=== PATIENT | female | born 1980 | race African-American/Black ===

== ENCOUNTER 2018-10-30 12:36 | Emergency (ER) | payer OTHER ==
[2018-10-30 13:29] LABS: ABSOLUTE LYMPHOCYTES (AUTO) 2.3 10^3/uL (0.5-4.7); ABSOLUTE MONOCYTES (AUTO) 0.3 10^3/uL (0.1-1.4); ABSOLUTE NEUT (AUTO) 2.1 10^3/uL (1.7-8.2); EOSINOPHILS % (AUTO) 0.2 % (0-6); HEMATOCRIT 37.4 % (36.0-47.0); HEMOGLOBIN 12.4 g/dL (12.0-15.5); LYMPHOCYTES % (AUTO) 48.4 % (13-45); MEAN CORPUSCULAR HEMOGLOBIN 30.2 pg (27.0-33.4); MEAN CORPUSCULAR HGB CONC 33.3 g/dL (32.0-36.0); MEAN CORPUSCULAR VOLUME 91 fl (80-97); MONOCYTES % (AUTO) 6.8 % (3-13); PLATELET COUNT 347 10^3/uL (150-450); RED BLOOD COUNT 4.11 10^6/uL (3.72-5.28); RED CELL DISTRIBUTION WIDTH 14.2 % (11.5-14.0); SEGMENTED NEUTROPHILS % (AUTO) 43.6 % (42-78); TOTAL CELLS COUNTED % (AUTO) 100 %; WHITE BLOOD COUNT 4.7 10^3/uL (4.0-10.5)
[2018-10-30 13:42] LABS: ALANINE AMINOTRANSFERASE 22 U/L (9-52); ALBUMIN 4.2 g/dL (3.5-5.0); ALKALINE PHOSPHATASE 74 U/L (38-126); ANION GAP 9 (5-19); ASPARTATE AMINO TRANSFERASE 16 U/L (14-36); BILIRUBIN,DIRECT 0.2 mg/dL (0.0-0.4); BILIRUBIN,TOTAL 0.6 mg/dL (0.2-1.3); BLOOD UREA NITROGEN 14 mg/dL (7-20); CALCIUM 10.1 mg/dL (8.4-10.2); CARBON DIOXIDE 28 mmol/L (22-30); CHLORIDE 102 mmol/L (98-107); GLUCOSE 88 mg/dL (75-110); POTASSIUM 3.9 mmol/L (3.6-5.0); SODIUM 138.7 mmol/L (137-145); TOTAL PROTEIN 8.1 g/dL (6.3-8.2)
--- NOTE | 2018-10-30 13:55 | ER Document Report ---
ED Blood Pressure Problem - General Chief Complaint: High Blood Pressure Stated Complaint: BLOOD PRESSURE ISSUES Time Seen by Provider: 10/30/18 13:01 Primary Care Provider: CAMILO PINEDO MD [Primary Care Provider] - Follow up as needed Mode of Arrival: Ambulatory Information source: Patient TRAVEL OUTSIDE OF THE [place] IN LAST 30 DAYS: No - HPI Patient complains to provider of: High blood pressure Notes: Patient is here with complaints of elevated blood pressure. The patient has a history of hypertension, she is on hydrochlorothiazide as well as amlodipine. She does admit that she does not take her blood pressure medication every day. She states that she did take it yesterday. States that she has been having some intermittent dizziness, headaches for the last few days. She states that she has a mild headache at this time. She denies any head injuries or falls. She is on blood thinning medications. She denies fever. No neck stiffness. No rash. No blurred or loss vision. No unilateral numbness, tingling, weakness. She does report that she has been having some exertional dyspnea for the last several weeks and this morning she was having some chest tightness. No chest pain currently. She denies any nausea, vomiting, diarrhea. She states that she took her blood pressure this morning because she had a headache and noted that it was 235/135. She took her amlodipine and her hydrochlorothiazide. Her blood pressure is improved now. No other specific complaints at this time. - Related Data Allergies/Adverse Reactions: Penicillins Allergy (Verified 10/30/18 12:37) Past Medical History - Social History Smoking Status: Never Smoker Frequency of alcohol use: None Drug Abuse: None Family History: Reviewed & Not Pertinent Patient has suicidal ideation: No Patient has homicidal ideation: No - Past Medical History Cardiac Medical History: Reports: Hx Hypertension Renal/ Medical History: Denies: Hx Peritoneal Dialysis Past Surgical History: Reports: Hx Breast Surgery - L biopsy, Hx Section - x2 Review of Systems - Review of Systems -: Yes All other systems reviewed and negative Physical Exam - Vital signs Vitals: Temp Pulse Resp BP Pulse Ox 97.9 F 87 16 145/88 H 100 10/30/18 12:48 10/30/18 12:48 10/30/18 12:48 10/30/18 12:48 10/30/18 12:48 - Notes Notes: GENERAL: alert, cooperative, nontoxic, no distress. HEAD: normocephalic, atraumatic EYES: conjunctiva pink without discharge, no external redness or swelling. Pupils are equal, round, reactive to light. EARS: no external swelling, no external redness NOSE: atraumatic, no external swelling MOUTH/THROAT: mucous membranes moist and pink, posterior pharynx without erythe ma, swelling, exudate. No trismus or drooling. NECK: soft, supple, full range of motion, no meningismus. CHEST: no distress, lungs clear and equal throughout. No wheezing, rales, rhonchi. CARDIAC: regular rate and rhythm, no murmur, normal capillary refill, normal pulses. No peripheral edema noted. BACK: full range of motion, no CVA tenderness. EXTREMITIES: full range of motion of all extremities. No redness, no swelling. NEURO: alert and oriented x 3, cranial nerves II through XII are grossly intact. Upper and lower extremities are equal throughout. Normal sensation. No focal deficits, full range of motion of all extremities. normal finger to nose. NIH stroke score of 0. PYSCH: appropriate mood, affect. Patient is cooperative. SKIN: pink, warm, dry, no rash. Course - Re-evaluation Re-evalutation: 10/30/18 18:01 Patient is nontoxic-appearing with stable vitals. The patient is here with complaints of dizziness which she is describes more of an ataxia when she gets up for the last several days. States that she is noticed that her blood pressure has been elevated, it was 205/131 home. She took her blood pressure medication it seems to be better here. She does report having some exertional shortness of breath over the last week or so and has some chest tightness and pressure earlier today. No chest pain now. No PE risk factors. She is PERC rule negative. EKG is negative. 2 troponins are negative. Chest x-ray is negative. Head CT is negative. She has a nonfocal neurological exam. With the exertional component of her shortness of breath and the fact that she has been having some ataxia type symptoms, I was concerned that she may require further evaluation. I have consulted the hospitalist Dr. Allen who has agreed to come and see the patient in the emergency department to determine if admission to the hospital is necessary at this time. Currently awaiting consult and recommendations. 10/30/18 18:42 Patient was seen and evaluated by Dr. Allen, the hospitalist. States that the patient's symptoms are chronic, she has a nonfocal exam, she had 2- troponins with an unremarkable EKG and that the patient can be discharged home at this time. He recommended writing her prescription for hydrochlorothiazide and having her follow-up with Dr. Kang. Patient is agreeable with this plan. The patient will be discharged home with her prescription. She is instructed to follow-up as discussed. Return the emergency department for worsening pain, high fever, persistent vomiting, numbness, [place], weakness, or any further concerns. The patient's emergency department workup and current diagnosis were explained to the patient and or family. Follow-up instructions were provided. Medicat ions if prescribed were discussed. Instructions for when to return to the emergency department including specific worrisome symptoms were discussed with the patient and/or family. - Vital Signs Vital signs: Temp Pulse Resp BP Pulse Ox 97.9 F 87 17 158/98 H 100 10/30/18 12:48 10/30/18 12:48 10/30/18 13:47 10/30/18 13:47 10/30/18 13:47 - Laboratory Result Diagrams: 10/30/18 13:05 10/30/18 13:05 Laboratory results interpreted by me: 10/30/18 13:05 RDW 14.2 H Lymphocytes % 48.4 H - Diagnostic Test Radiology reviewed: Image reviewed, Reports reviewed - Chest x-ray negative, CT head negative. - EKG Interpretation by Oh EKG shows normal: Sinus rhythm, [place], Intervals, QRS Complexes Rate: Normal When compared to previous EKG there are: Other - Heart rate 88. Slightly flattened T waves in lead II, aVF, lead III. No ST segment elevation or depression. No STEMI. Discharge - Discharge Clinical Impression: Dizziness Headache Qualifiers: Headache type: unspecified Headache chronicity pattern: acute headache Intractability: not intractable Qualified Code(s): R51 - Headache Hypertension Qualifiers: Hypertension type: unspecified Qualified Code(s): I10 - Essential (primary) hypertension Chest pain Qualifiers: Chest pain type: unspecified Qualified Code(s): R07.9 - Chest pain, unspecified Condition: Stable Disposition: HOME, SELF-CARE Instructions: High Blood Pressure ([facility]), Hydrochlorothiazide ([facility]), Chest Pain of Unclear Cause ([facility]), Dizziness ([facility]) Additional Instructions: Take medication as prescribed. Follow-up as directed. Follow-up sooner for wo rsening pain, numbness, tingling, weakness, persistent vomiting, chest pain or shortness of breath, passing out, or for any further concerns. Prescriptions: Hydrochlorothiazide [Hydrodiuril 25 mg Tablet] 25 mg PO QAM #30 tablet Forms: Elevated Blood Pressure Referrals: CAMILO PINEDO MD [Primary Care Provider] - Follow up as needed ALEXANDRA KANG MD [ACTIVE STAFF] - Follow up as needed
--- NOTE | 2018-10-30 15:42 | RADIOLOGY REPORT (SQ) ---
EXAM DESCRIPTION: CT HEAD WITHOUT COMPLETED DATE/TIME: 10/30/2018 3:10 pm REASON FOR STUDY: headache, HTN, dizziness COMPARISON: None. TECHNIQUE: Axial images acquired through the brain without intravenous contrast. Images reviewed wi th bone, brain and subdural windows. Images stored on PACS. All CT scanners at this facility use dose modulation, iterative reconstruction, and/or weight based d osing when appropriate to reduce radiation dose to as low as reasonably achievable (ALARA). [facility]: Dose Right [facility]: CareDose [facility]: Dose Right [facility]: Teradose 4D [facility]: [employer] RADIATION DOSE: CT Rad equipment meets quality standard of care and radiation dose reduction techniq ues were employed. CTDIvol: 53.2 mGy. DLP: 1177 mGy-cm. mGy. LIMITATIONS: None. FINDINGS: VENTRICLES: Normal size and contour. CEREBRUM: No mass effect. No hemorrhage. No midline shift. Normal m[place]/white matter differentiatio n. No evidence for acute territorial infarction. CEREBELLUM: No mass effect. No hemorrhage. No alteration of density. No evidence for acute infarct ion. EXTRAAXIAL SPACES: No fluid collections. ORBITS AND GLOBE: Symmetrical contour of the globes. CALVARIUM: No depressed skull fracture. PARANASAL SINUSES: No air-fluid level. SOFT TISSUES: No hematoma. IMPRESSION: NO ACUTE INTRACRANIAL IMAGING FINDINGS. EVIDENCE OF ACUTE STROKE: NO. COMMENT: Quality ID # 436: Final reports with documentation of one or more dose reduction techniques (e.g., Automated exposure control, adjustment of the mA and/or kV according to patient size, use of iterative reconstruction technique) TECHNICAL DOCUMENTATION: JOB ID: [id number] [place]-64 2010 [employer]- All Rights Reserved Reading location - IP/workstation name: [email or web address]
--- NOTE | 2018-10-30 15:56 | RADIOLOGY REPORT (SQ) ---
EXAM DESCRIPTION: CHEST SINGLE VIEW COMPLETED DATE/TIME: 10/30/2018 3:05 pm REASON FOR STUDY: Chest pain, shortness of breath COMPARISON: None. EXAM PARAMETERS: NUMBER OF VIEWS: One view. TECHNIQUE: Single frontal radiographic view of the chest acquired. RADIATION DOSE: NA LIMITATIONS: None. FINDINGS: LUNGS AND PLEURA: No consolidation, pneumothorax or pleural effusion. MEDIASTINUM AND HILAR STRUCTURES: No masses. Contour normal. HEART AND VASCULAR STRUCTURES: Heart normal in size. Normal vasculature. BONES: No acute findings. HARDWARE: None in the chest. IMPRESSION: NO ACUTE RADIOGRAPHIC FINDING IN THE CHEST. TECHNICAL DOCUMENTATION: JOB ID: [id number] [place]-64 2010 [employer]- All Rights Reserved Reading location - IP/workstation name: [email or web address]
--- NOTE | 2018-10-30 18:38 | Progress Note ---
Provider Note Provider Note: ER Consult: This is a 38 yr old female, patient of Dr. Fry, with no significant PMH aside from hypertension-supposed to be on amlodipine and HCTZ who presented to the ER due to elevated blood pressures at home. She did report of chest discomfort and dizziness. ER provider requesting admission for OBS. Patient seen end examined. She is comfortable on bed texting. She says she checked her BP at home this morning and it was 205/130. She says she ran out of HCTZ and has not been taking it for a week now and is just taking the amlodipine. In the ER, blood pressure was 145/88. She says her chest pain is not "pain" but actually more of a "flutter sensation" which she has been having in the past 4-6 weeks, on and off. It is non exertional. She says the last time she had some "fluttering sensation" was a week ago. She says she also has occasional dizziness which she describes as light headedness when she walks. This happens 2-3 a week. She denies vertigo, unilateral weakness or numbness. She says she also has occasional headache which is also chronic in nature, throbbing in nature on the right frontal aspect and this has been going on for several months. She is a nonsmoker, non alcohol drinker and non recreational drug user. She denies any cardiac history in the family. She also had a CT head which was negative. Physical examination including neurologic and cerebellar testing are normal. EKG and troponins x 2 have been negative. Patient reassured and strongly advised to comply with antihyper tensives at home and to continue checking her blood pressures at home. ER provider to give her a script for HCTZ. Tele monitoring during the entire stay in the ER has been unremarkable. She may benefit from outpatient Holter monitor with her occasional "flutter" sensation. She will be referred to Dr. Lugo for possible Holter placement. She verbalized understanding.
[2018-10-30 19:12] VITALS: BP 138/95
--- NOTE | 2018-10-30 23:41 | EKG REPORT ---
SEVERITY:- BORDERLINE ECG - SINUS RHYTHM BORDERLINE T ABNORMALITIES, INFERIOR LEADS : Confirmed by: Pierre Lugo 30-Oct-2018 23:41:06
== END 2018-10-30 19:13 | disposition home or self-care (01) ==
LOC: ER 12:36
DX: R07.9 Chest pain, unspecified (principal); R51 Headache; R42 Dizziness and giddiness; I10 Essential (primary) hypertension; Z79.899 Other long term (current) drug therapy
CPT/HCPCS: 36415; 70450; 71045; 80053; 84484; 85025; 93005; 93010; 99284

== ENCOUNTER 2019-07-23 18:12 | Emergency (ER) | payer OTHER ==
--- NOTE | 2019-07-23 18:56 | ER Document Report ---
ED Medical Screen (RME) - General Chief Complaint: Blood Pressure Problem Stated Complaint: BLOOD PRESSURE ISSUE Time Seen by Provider: 07/23/19 18:51 Primary Care Provider: CAMILO PINEDO MD [Primary Care Provider] - Follow up as needed Notes: Patient is a 39-year-old female who presents to the emergency department with a chief complaint of blood pressure issues. She was started on amlodipine/Benzapril by her primary care provider and she took her first dose yesterday. She woke up with a headache and states that she kept taking her blood pressure and it was high. Exam: Awake, alert, oriented. I have greeted and performed a rapid initial assessment of this patient. A comprehensive ED assessment and evaluation of the patient, analysis of test results and completion of medical decision making process will be conducted by an additional ED providers. TRAVEL OUTSIDE OF THE [place] IN LAST 30 DAYS: No - Related Data Allergies/Adverse Reactions: Penicillins Allergy (Verified 10/30/18 12:37) Past Medical History - Past Medical History Cardiac Medical History: Reports: Hx Hypertension Renal/ Medical History: Denies: Hx Peritoneal Dialysis Past Surgical History: Reports: Hx Breast Surgery - L biopsy, Hx Section - x2 Physical Exam - Vital signs Vitals: Temp Pulse Resp BP Pulse Ox 98.5 F 98 16 155/95 H 100 07/23/19 18:16 07/23/19 18:16 07/23/19 18:16 07/23/19 18:16 07/23/19 18:16 Course - Vital Signs Vital signs: Temp Pulse Resp BP Pulse Ox 98.5 F 98 16 155/95 H 100 07/23/19 18:16 07/23/19 18:16 07/23/19 18:16 07/23/19 18:16 07/23/19 18:16 Doctor's Discharge - Discharge Referrals: CMAILO PINEDO MD [Primary Care Provider] - Follow up as needed
[2019-07-23 19:13] LABS: ABSOLUTE LYMPHOCYTES (AUTO) 2.2 10^3/uL (0.5-4.7); ABSOLUTE MONOCYTES (AUTO) 0.3 10^3/uL (0.1-1.4); ABSOLUTE NEUT (AUTO) 2.4 10^3/uL (1.7-8.2); BASOPHILS % (AUTO) 0.4 % (0-2); EOSINOPHILS % (AUTO) 0.3 % (0-6); HEMATOCRIT 36.9 % (36.0-47.0); HEMOGLOBIN 12.4 g/dL (12.0-15.5); LYMPHOCYTES % (AUTO) 43.8 % (13-45); MEAN CORPUSCULAR HEMOGLOBIN 30.4 pg (27.0-33.4); MEAN CORPUSCULAR HGB CONC 33.7 g/dL (32.0-36.0); MEAN CORPUSCULAR VOLUME 90 fl (80-97); MONOCYTES % (AUTO) 6.6 % (3-13); PLATELET COUNT 334 10^3/uL (150-450); RED BLOOD COUNT 4.09 10^6/uL (3.72-5.28); RED CELL DISTRIBUTION WIDTH 14.1 % (11.5-14.0); SEGMENTED NEUTROPHILS % (AUTO) 48.9 % (42-78); TOTAL CELLS COUNTED % (AUTO) 100 %; WHITE BLOOD COUNT 4.9 10^3/uL (4.0-10.5)
[2019-07-23 19:32] LABS: ALBUMIN 4.4 g/dL (3.5-5.0); ALKALINE PHOSPHATASE 92 U/L (38-126); ANION GAP 9 (5-19); ASPARTATE AMINO TRANSFERASE 24 U/L (14-36); BILIRUBIN,DIRECT 0.2 mg/dL (0.0-0.4); BILIRUBIN,TOTAL 0.5 mg/dL (0.2-1.3); BLOOD UREA NITROGEN 11 mg/dL (7-20); CARBON DIOXIDE 31 mmol/L (22-30); CHLORIDE 99 mmol/L (98-107); CREATINE KINASE 64 U/L (30-135); GLUCOSE 100 mg/dL (75-110); POTASSIUM 3.5 mmol/L (3.6-5.0); TOTAL PROTEIN 8.4 g/dL (6.3-8.2)
[2019-07-23] MEDS ORDERED: ATENOLOL 50 MG TABLET PO ONE (19:43)
[2019-07-23] MEDS ORDERED: KETOROLAC TROMETHAMINE 60 MG/2 ML SDV IM ONE (19:47)
[2019-07-23] MEDS ORDERED: HYDROCHLOROTHIAZIDE 25 MG TABLET PO ONE (19:47)
--- NOTE | 2019-07-23 19:55 | ER Document Report ---
ED General - General Chief Complaint: Blood Pressure Problem Stated Complaint: BLOOD PRESSURE ISSUE Time Seen by Provider: 07/23/19 18:51 Primary Care Provider: CAMILO PINEDO MD [Primary Care Provider] - Follow up as needed Mode of Arrival: Ambulatory Information source: Patient - at bedside, Relative TRAVEL OUTSIDE OF THE [place] IN LAST 30 DAYS: No - HPI Onset: Other - prior evening Onset/Duration: Sudden - After taking Norvasc and benazepril tablet for blood pressure Quality of pain: Achy Severity: Mild Pain Level: 2 Associated symptoms: Headache Exacerbated by: Denies, Other - Patient denies any photophobia or phonophobia Relieved by: Denies Similar symptoms previously: No Recently seen / treated by doctor: Yes - Related Data Allergies/Adverse Reactions: Penicillins Allergy (Verified 10/30/18 12:37) Home Medications: Amlod/Benaz 10-40mg cap PO qd. Past Medical History - General Information source: Patient, Relative - Social History Smoking Status: Never Smoker Cigarette use (# per day): No Chew tobacco use (# tins/day): No Smoking Education Provided: No Frequency of alcohol use: None Drug Abuse: None Lives with: Family Family History: Reviewed & Not Pertinent Patient has suicidal ideation: No Patient has homicidal ideation: No - Medical History Medical History: Other - No family history of hypertension per patient - Past Medical History Cardiac Medical History: Reports: Hx Hypertension Renal/ Medical History: Denies: Hx Peritoneal Dialysis Past Surgical History: Reports: Hx Breast Surgery - L biopsy, Hx Section - x2 Review of Systems - Review of Systems Neurological/Psychological: Headaches Physical Exam - Vital signs Vitals: Temp Pulse Resp BP Pulse Ox 98.5 F 98 16 155/95 H 100 07/23/19 18:16 07/23/19 18:16 07/23/19 18:16 07/23/19 18:16 07/23/19 18:16 Interpretation: Normal - General General appearance: Appears well, Alert - HEENT Head: Normocephalic, Atraumatic Eyes: Normal Pupils: PERRL - Respiratory Respiratory status: No respiratory distress Chest status: Nontender Breath sounds: Normal Chest palpation: Normal - Cardiovascular Rhythm: Regular Heart sounds: Normal auscultation Murmur: No - Abdominal Inspection: Normal Distension: No distension Bowel sounds: Normal Tenderness: Nontender Organomegaly: No organomegaly - Back Back: Normal, Nontender - Extremities General upper extremity: Normal inspection, Nontender, Normal color, Normal ROM, Normal temperature General lower extremity: Normal inspection, Nontender, Normal color, Normal ROM, Normal temperature, Normal weight bearing. No: Leonid's sign - Neurological Neuro grossly intact: Yes Cognition: Normal Orientation: AAOx4 Madi Coma Scale Eye Opening: Spontaneous [place] Coma Scale Verbal: Oriented [place] Coma Scale Motor: Obeys Commands [place] Coma Scale Total: 15 Speech: Normal Motor strength normal: LUE, RUE, LLE, RLE Sensory: Normal - Psychological Associated symptoms: Normal affect, Normal mood - Skin Skin Temperature: Warm Skin Moisture: Dry Skin Color: Normal Course - Vital Signs Vital signs: Temp Pulse Resp BP Pulse Ox 98.5 F 98 16 155/95 H 100 07/23/19 18:16 07/23/19 18:16 07/23/19 18:16 07/23/19 18:16 07/23/19 18:16 - Laboratory Result Diagrams: 07/23/19 19:02 07/23/19 19:02 Laboratory results interpreted by me: 07/23/19 07/23/19 19:02 19:02 RDW 14.1 H Potassium 3.5 L Carbon Dioxide 31 H Total Protein 8.4 H - Diagnostic Test Radiology reviewed: Reports reviewed Critical Care Note - Critical Care Note Total time excluding time spent on procedures (mins): 30 Discharge - Discharge Clinical Impression: Hypertension, Headache Condition: Good Disposition: HOME, SELF-CARE Additional Instructions: Take your blood pressures at nighttime arise in the morning very slowly for at least 1 to 2 weeks. Try to get your blood pressures taken at least once or twice a day for the first 2 weeks. Follow-up with your personal doctor encourage fluids and eat a banana a day for potassium or you may eat potatoes you may take potassium tablets Prescriptions: Hydrochlorothiazide [Hydrodiuril 25 mg Tablet] 25 mg PO QAM #30 tablet Atenolol [Tenormin] 25 mg PO HSP PRN 30 Days #30 tablet PRN Reason: Forms: Elevated Blood Pressure, Return to Work Referrals: CAMILO PINEDO MD [Primary Care Provider] - Follow up as needed
--- NOTE | 2019-07-23 21:09 | RADIOLOGY REPORT (SQ) ---
EXAM DESCRIPTION: CT HEAD WITHOUT IV CONTRAST COMPLETED DATE/TME: 07/23/2019 19:31 CLINICAL HISTORY: 39 years, Female, headache COMPARISON: Prior study from 10/30/2018 TECHNIQUE: Noncontrast CT of head was acquired. Coronal and sagittal reformations were created. Images stored on PACS. All CT scanners at this facility use dose modulation, iterative reconstruction, and/or weight based dosing when appropriate to reduce radiation dose to as low as reasonably achievable (ALARA). [facility]: Dose Right [facility]: CareDose [facility]: Dose Right [facility]: Teradose 4D [facility]: [employer] LIMITATIONS: None. FINDINGS: Brain parenchyma is normal in attenuation. No acute intracranial hemorrhage, mass effect, or extra-axial fluid is seen. The ventricles, sulci, and basilar cisterns are normal in size and configuration. Globes and orbits are normal. Paranasal sinuses and mastoid air cells are clear. There are no depressed skull fractures. A few scattered dural calcifications are noted. IMPRESSION: No acute intracranial abnormality. TECHNICAL DOCUMENTATION: Quality ID # 436: Final reports with documentation of one or more dose reduction techniques (e.g., Automated exposure control, adjustment of the mA and/or kV according to patient size, use of iterative reconstruction technique) copyright 2010 [employer]- All Rights Reserved
[2019-07-23 21:25] VITALS: BP 151/110
== END 2019-07-23 21:25 | disposition home or self-care (01) ==
LOC: ER 18:12
DX: R51 Headache (principal); I10 Essential (primary) hypertension; Z88.0 Allergy status to penicillin
CPT/HCPCS: 99285; 96372; 36415; 82550; 85025; 80053; 70450; J1885

== ENCOUNTER → 2020-05-31 | Outpatient (CLI) | payer OTHER ==
[2020-05-31 13:28] VITALS: BP 100/59
--- NOTE | 2020-05-31 13:28 | ER RDC ASSESSMENT REPORT ---
Intake - In the Last 14 days Have you traveled outside [place]?: No Have you been in close contact with someone CONFIRMED: Yes Worked in Healthcare?: No - Symptoms Subjective Fever([place] feverish): No Chills: No Muscule Aches: No Runny Nose: No Sore Throat: No Cough (New or worsening chronic cough): No Shortness of breath: No Nausea or Vomiting: No Headache: No Abdominal Pain: No Diarrhea(3 or more loose stools in last 24 hours): No - Do you have any of the following Chronic lung disease: Asthma or emphysema or COPD: No Cystic Fibrosis: No Diabetes: No High Blood Pressure: Yes Cardiovascular Disease: Yes Chronic Kidney Disease: No Chronic Liver Disease: No Chronic blood disorder like Sickle Cell Disease: No Weak immune system due to disease or medication: No Neurologic condition that limits movement: No Developmental delay - Moderate to Severe: No Recent (within past 2 weeks) or current : No Morbid Obesity (>100 pounds over ideal weight): No Obesity Comment: Height 5 feet 4 inches weight 190 pounds - Objective Temperature: 98.9 F Pulse Rate: 69 Respiratory Rate: 18 Blood Pressure: 100/59 O2 Sat by Pulse Oximetry: 100 Objective: Given above, testing performed: If Testing Performed: Test Specimen Type Sent to General - General Information source: Patient Notes: Patient here at [facility] for Covid testing patient works at [employer] and student had tested positive on patient had exposure and at this point does not have any symptoms patient's PCP is Dr. Varma with [facility]. Recommended to get Covid testing. - Related Data Allergies/Adverse Reactions: Penicillins Allergy (Verified 10/30/18 12:37) Past Medical History - General Information source: Patient - Social History Smoking Status: Never Smoker Family History: Reviewed & Not Pertinent - Past Medical History Cardiac Medical History: Reports: Hx Hypertension Renal/ Medical History: Denies: Hx Peritoneal Dialysis Past Surgical History: Reports: Hx Breast Surgery - L biopsy, Hx Section - x2 Physical Exam - General General appearance: Appears well, Alert In distress: None Notes: PHYSICAL EXAMINATION: GENERAL: Well-appearing and in no acute distress. HEAD: Atraumatic, normocephalic. EYES: sclera anicteric, conjunctiva are normal. ENT: nares patent. Moist mucous membranes. NECK: Normal range of motion, supple without lymphadenopathy LUNGS: CTAB and equal. No wheezes rales or rhonchi. Respirations even and unlabored lung sounds clear HEART: Regular rate and rhythm without murmurs ABDOMEN: Soft, nontender, normal bowel sounds, no guarding. EXTREMITIES: Normal range of motion, no pitting edema. No cyanosis. NEUROLOGICAL: Cranial nerves grossly intact. Normal speech. Normal gait. PSYCH: Normal mood, normal affect. SKIN: Warm, Dry, normal turgor, no rashes or lesions noted Diagnostic Results Laboratory Results: Pending Covid test results. Patient provided instructions regarding Covid to include: As a person under investigation for Covid 19, the Counts include 234 beds at the [facility], division of public health advises you to adhere to the following guidance until your test results are reported to you. If your test result is positive, you will receive additional information from your provider and your local health department at that time. Remain at home until you are cleared by the health provider or public health authorities. Keep a log of visitors to your home, notify any visitors to your home of your isolation status. If you plan to move to a new address or leave the county, notify the local health department in your County. Call your doctor or seek care if you have an urgent medical need. Before seeking medical care, call ahead to get instructions from the provider before arriving at the medical office clinic or hospital. Notify them that you are being tested for the virus that causes Covid 19 so that arrangements can be made, as necessary, to prevent transmission to others in the healthcare setting. Next, notify the local health department in your county. If a medical emergency arises and you need to call 911, inform the first responders that you are being tested for the virus that causes Covid 19. Next, notify the local health department in your county.. Patient Education/Counseling Counseling/Education: Patient presents with upper respiratory symptoms worrisome for possible Covid 19. Patient does not have emergency worring symptoms such as difficulty breathing, shortness of breath, chest pain, pressure, confusion or cyanosis. Patient appears suitable for discharge. Patient instructed to follow-up with PCP at [facility]. Patient's vital signs are stable and patient is nontoxic in appearance. Good return precautions have been discussed with patient, patient verbalized understanding and is agreeable with discharge plan of care at this time. [facility] Discharge - Discharge Clinical Impression: Encounter for screening laboratory testing for COVID-19 virus in asymptomatic patient Condition: Stable Disposition: Home; Selfcare
== END ==
LOC: RDC 12:53
PROVIDERS: ATTEND Nurse Practitioner Family
DX: Z20.828 Contact with and (suspected) exposure to other viral communicable diseases (principal); I10 Essential (primary) hypertension
CPT/HCPCS: 87635; C9803